=== PATIENT | female | born 1945 | race Caucasian/White ===

== ENCOUNTER 2020-07-15 05:47 | Inpatient (IN) ==
[2020-07-15 06:32] LABS: Basophils # 0.1 K/mcL (0.0-0.2); Basophils % 0.4 %; Eosinophils % 0.3 %; Hematocrit 40.2 % (35.3-44.9); Hemoglobin 12.9 g/dL (11.5-15.4); Immature Granulocytes % 0.9 % (0-4); Lymphocytes # 0.7 K/mcL (0.6-4.6); Lymphocytes % 5.8 %; Mean Corpuscular HGB Conc 32.1 g/dL (31.6-35.5); Mean Corpuscular Hemoglobin 32.3 pg (28.0-33.3); Mean Corpuscular Volume 100.8 fL (83.0-100.0); Mean Platelet Volume 9.2 fL (9.4-12.4); Monocytes # 1.4 K/mcL (0.0-1.3); Monocytes % 11.4 %; Neutrophils # 10.1 K/mcL (1.6-8.9); Platelet Count 158 K/mcL (140-400); Red Blood Count 3.99 M/mcL (3.82-4.97); Red Cell Distribution Width 15.5 % (11.5-14.5); Segmented Neutrophils % 81.2 %; White Blood Count 12.4 K/mcL (4.3-11.1)
[2020-07-15 07:03] LABS: Calcium 9.6 mg/dL (8.6-10.3); Potassium 4.3 mEq/L (3.5-5.1); Troponin I 0.04 ng/mL (< 0.04)
[2020-07-15] MEDS ORDERED: Isovue-370 500 ML BOTTLE IVP ONE (07:03)
[2020-07-15] MEDS ORDERED: Acetaminophen 325 MG TABLET PO ONE (07:31)
[2020-07-15 07:52] LABS: Adenovirus Not Detected (Not Detect); Bordetella Pertussis Not Detected (Not Detect); Chlamydophila pneumoniae Not Detected (Not Detect); Coronavirus 229E Not Detected (Not Detect); Coronavirus HKU1 Not Detected (Not Detect); Coronavirus NL63 Not Detected (Not Detect); Coronavirus OC43 Not Detected (Not Detect); Human Metapneumovirus Not Detected (Not Detect); Human Rhinovirus/Enterovirus Not Detected (Not Detect); Influenza A Subtype 2009 H1 Not Detected (Not Detect); Influenza B Not Detected (Not Detect); Mycoplasma pneumoniae Not Detected (Not Detect); Parainfluenza Virus 1 Not Detected (Not Detect); Parainfluenza Virus 2 Not Detected (Not Detect); Parainfluenza Virus 3 Not Detected (Not Detect); Parainfluenza Virus 4 Not Detected (Not Detect); Respiratory Syncytial Virus Not Detected (Not Detect); SARS-CoV-2 Not Detected (Not Detect)
[2020-07-15 08:34] LABS: Amorphous Sediment,Urine Few per hpf (None-Few); Bilirubin,Urine Negative (Negative); Blood,Urine Negative (Negative); Clarity,Urine Clear (Clear); Color,Urine Yellow (Yellow); Glucose,Urine (UA) Normal (Normal); Granular Casts,Urine Few per lpf (None Seen); Hyaline Casts,Urine Few per lpf (None Seen); Ketones,Urine Negative (Negative); Leukocyte Esterase,Urine Negative (Negative); Mucus,Urine Few per lpf (None-Few); Nitrite,Urine Negative (Negative); PH,Urine 5.5 pH Units (5.0-8.0); Protein,Urine 100 mg/dL (Neg-Trace); RBC,Urine 0-3 per hpf (0-3); Specific Gravity,Urine 1.019 (1.010-1.025); Squamous Epithelial Cell,Urine Few per hpf (None-Few); Urobilinogen,Urine Normal (Normal); WBC,Urine 0-3 per hpf (0-3)
[2020-07-15] MEDS ORDERED: cefTRIAXone 1,000 MG in Water for inj. (sterile) 10 ML IVP ONE (09:04)
[2020-07-15] MEDS ORDERED: Azithromycin 500 MG in 0.9 % Sodium Chloride 250 ML IVPB ONE (09:05)
[2020-07-15] MEDS ORDERED: Naloxone 0.4 MG/ML INJ IVP PRN (10:03)
[2020-07-15] MEDS ORDERED: Ondansetron 4 MG/2 ML VIAL IVP PRN (10:03)
[2020-07-15] MEDS ORDERED: *HR* Dextrose 50 % in Water (Vial) 50 ML VIAL IVP PRN (10:36)
[2020-07-15] MEDS ORDERED: Dextrose Gel 15 GM/37.5 ML TUBE PO PRN ×2 (10:36)
[2020-07-15] MEDS ORDERED: D5% in Water 1,000 ML IVC PRN (10:36)
[2020-07-15] MEDS: Insulin LISPRO 300 UNITS/3 ML VIAL SUBQ SCH ×2 (11:14→17:19)
[2020-07-15] MEDS: *HR* Heparin 5,000 UNIT/ML VIAL SQ SCH (17:18)
[2020-07-15] MEDS: Acetaminophen 325 MG TABLET PO PRN (17:19)
[2020-07-15] MEDS: Gabapentin 300 MG CAPSULE PO SCH (19:54)
[2020-07-15] MEDS: amLODIPine 5 MG TABLET PO SCH (19:54)
[2020-07-15] MEDS: traZODone 50 MG TABLET PO SCH (19:55)
[2020-07-15] MEDS: hydrALAZINE 25 MG TABLET PO SCH (19:55)
[2020-07-15] MEDS ORDERED: Venlafaxine XR (24 HR) 150 MG CAP.ER.24H PO SCH (21:00)
[2020-07-16 06:10] LABS: Basophils % 0.3 %; Eosinophils % 0.1 %; Hematocrit 36.9 % (35.3-44.9); Hemoglobin 11.8 g/dL (11.5-15.4); Immature Granulocytes % 0.6 % (0-4); Lymphocytes # 0.6 K/mcL (0.6-4.6); Lymphocytes % 4.1 %; Mean Corpuscular Hemoglobin 32.1 pg (28.0-33.3); Mean Corpuscular Volume 100.3 fL (83.0-100.0); Mean Platelet Volume 9.3 fL (9.4-12.4); Monocytes # 1.2 K/mcL (0.0-1.3); Monocytes % 8.7 %; Neutrophils # 11.7 K/mcL (1.6-8.9); Platelet Count 138 K/mcL (140-400); Red Blood Count 3.68 M/mcL (3.82-4.97); Red Cell Distribution Width 15.3 % (11.5-14.5); Segmented Neutrophils % 86.2 %; White Blood Count 13.5 K/mcL (4.3-11.1)
[2020-07-16 06:31] LABS: BUN/Creatinine Ratio 20 (6-26); Blood Urea Nitrogen 19 mg/dL (8-23); Calcium 9.3 mg/dL (8.6-10.3); Carbon Dioxide 25 mEq/L (23-29); Chloride 101 mEq/L (98-107); Glucose 170 mg/dL (70-105); Magnesium 1.8 mg/dL (1.6-2.6); Osmolality,Calculated 284 (280-300); Potassium 3.9 mEq/L (3.5-5.1); Sodium 134 mEq/L (136-145); eGFR For African Americans > 60 (> 60); eGFR For Non-African Americans 58 (> 60)
[2020-07-16] MEDS ORDERED: Perflutren Lipid Microsphere 1.3 ML in 0.9 % Sodium Chloride 8.7 ML IVP PRN (07:44)
[2020-07-16] MEDS: Metoprolol XL (24 HR) Succ 25 MG TAB.ER.24H PO SCH (08:12)
[2020-07-16] MEDS: Aspirin Enteric Coated 81 MG Tablet PO SCH (08:12)
[2020-07-16] MEDS: Famotidine 20 MG TABLET PO SCH (08:12)
[2020-07-16] MEDS: Cyanocobalamin (B-12) 1,000 MCG TABLET PO SCH (08:13)
[2020-07-16] MEDS: hydrALAZINE 25 MG TABLET PO SCH ×3 (08:13→20:03)
[2020-07-16] MEDS: Gabapentin 300 MG CAPSULE PO SCH ×3 (08:13→20:04)
[2020-07-16] MEDS: amLODIPine 5 MG TABLET PO SCH ×2 (08:13→20:04)
[2020-07-16] MEDS: cefTRIAXone 1,000 MG in Water for inj. (sterile) 10 ML IVP SCH (08:13)
[2020-07-16] MEDS: *HR* Heparin 5,000 UNIT/ML VIAL SQ SCH (08:14)
[2020-07-16] MEDS: Insulin LISPRO 300 UNITS/3 ML VIAL SUBQ SCH ×3 (08:17→16:23)
[2020-07-16] MEDS ORDERED: Venlafaxine XR (24 HR) 37.5 MG CAP.ER.24H PO SCH (09:00)
[2020-07-16] MEDS ORDERED: Furosemide 20 MG TABLET PO SCH (09:00)
[2020-07-16] MEDS ORDERED: Furosemide 20 MG/2 ML VIAL IVP SCH (09:00)
[2020-07-16 10:19] LABS: Adenovirus Not Detected (Not Detect); Bordetella Pertussis Not Detected (Not Detect); Chlamydophila pneumoniae Not Detected (Not Detect); Coronavirus 229E Not Detected (Not Detect); Coronavirus HKU1 Not Detected (Not Detect); Coronavirus NL63 Not Detected (Not Detect); Coronavirus OC43 Not Detected (Not Detect); Human Metapneumovirus Not Detected (Not Detect); Human Rhinovirus/Enterovirus Not Detected (Not Detect); Influenza A Subtype 2009 H1 Not Detected (Not Detect); Influenza B Not Detected (Not Detect); Mycoplasma pneumoniae Not Detected (Not Detect); Parainfluenza Virus 1 Not Detected (Not Detect); Parainfluenza Virus 2 Not Detected (Not Detect); Parainfluenza Virus 3 Not Detected (Not Detect); Parainfluenza Virus 4 Not Detected (Not Detect); Respiratory Syncytial Virus Not Detected (Not Detect); SARS-CoV-2 Not Detected (Not Detect)
[2020-07-16] MEDS: Azithromycin 500 MG in 0.9 % Sodium Chloride 250 ML IVPB SCH (11:00)
[2020-07-16] MEDS ORDERED: *HR* Heparin 5,000 UNIT/ML VIAL IVP ONE (15:31)
[2020-07-16] MEDS: Acetaminophen 325 MG TABLET PO PRN ×2 (15:34→21:34)
[2020-07-16] MEDS: lisinopriL 20 MG TABLET PO SCH (16:27)
[2020-07-16] MEDS: Heparin 25,000UNIT/250ML 1/2NS 25,000 UNIT/250 ML IV.SOLN IVC SCH (16:28)
[2020-07-16] MEDS ORDERED: *HR* Heparin 5,000 UNIT/ML VIAL IVP PRN ×2 (16:30)
[2020-07-16 17:00] LABS: Hematocrit 35.8 % (35.3-44.9); Hemoglobin 11.4 g/dL (11.5-15.4); Mean Corpuscular HGB Conc 31.8 g/dL (31.6-35.5); Mean Corpuscular Hemoglobin 31.4 pg (28.0-33.3); Mean Corpuscular Volume 98.6 fL (83.0-100.0); Mean Platelet Volume 9.5 fL (9.4-12.4); Platelet Count 142 K/mcL (140-400); Red Blood Count 3.63 M/mcL (3.82-4.97); Red Cell Distribution Width 15.3 % (11.5-14.5); White Blood Count 9.9 K/mcL (4.3-11.1)
[2020-07-16 17:02] LABS: INR 1.3; Prothrombin Time 14.4 Seconds (9.4-12.1)
[2020-07-16 17:03] LABS: Heparin anti-factor XA UFH < 0.04 IU/mL (0.30-0.70)
[2020-07-16] MEDS: Furosemide 20 MG/2 ML VIAL IVP SCH (20:03)
[2020-07-16] MEDS: traZODone 50 MG TABLET PO SCH (20:04)
[2020-07-16] MEDS ORDERED: Melatonin 3 MG TABLET PO ONE (20:17)
[2020-07-16] MEDS: Venlafaxine XR (24 HR) 150 MG CAP.ER.24H PO SCH (21:35)
[2020-07-17] MEDS: Acetaminophen 325 MG TABLET PO PRN (01:22)
[2020-07-17 06:21] LABS: Basophils # 0.1 K/mcL (0.0-0.2); Basophils % 0.5 %; Eosinophils # 0.1 K/mcL (0.0-0.6); Eosinophils % 0.8 %; Hematocrit 35.3 % (35.3-44.9); Hemoglobin 11.3 g/dL (11.5-15.4); Immature Granulocytes % 0.7 % (0-4); Lymphocytes # 0.8 K/mcL (0.6-4.6); Lymphocytes % 7.9 %; Mean Corpuscular Hemoglobin 31.8 pg (28.0-33.3); Mean Corpuscular Volume 99.4 fL (83.0-100.0); Mean Platelet Volume 9.6 fL (9.4-12.4); Monocytes # 0.9 K/mcL (0.0-1.3); Monocytes % 8.7 %; Neutrophils # 7.9 K/mcL (1.6-8.9); Platelet Count 159 K/mcL (140-400); Red Blood Count 3.55 M/mcL (3.82-4.97); Red Cell Distribution Width 15.2 % (11.5-14.5); Segmented Neutrophils % 81.4 %; White Blood Count 9.7 K/mcL (4.3-11.1)
[2020-07-17 06:54] LABS: Calcium 9.7 mg/dL (8.6-10.3); Potassium 3.9 mEq/L (3.5-5.1)
[2020-07-17] MEDS: Insulin LISPRO 300 UNITS/3 ML VIAL SUBQ SCH ×3 (07:26→16:36)
[2020-07-17] MEDS ORDERED: lisinopriL 20 MG TABLET PO SCH (09:00)
[2020-07-17] MEDS: cefTRIAXone 1,000 MG in Water for inj. (sterile) 10 ML IVP SCH (10:12)
[2020-07-17] MEDS: Famotidine 20 MG TABLET PO SCH (10:13)
[2020-07-17] MEDS: Aspirin Enteric Coated 81 MG Tablet PO SCH (10:13)
[2020-07-17] MEDS: hydrALAZINE 25 MG TABLET PO SCH ×3 (10:14→19:55)
[2020-07-17] MEDS: Metoprolol XL (24 HR) Succ 25 MG TAB.ER.24H PO SCH (10:14)
[2020-07-17] MEDS: Venlafaxine XR (24 HR) 37.5 MG CAP.ER.24H PO SCH (10:15)
[2020-07-17] MEDS: Cyanocobalamin (B-12) 1,000 MCG TABLET PO SCH (10:15)
[2020-07-17] MEDS: amLODIPine 5 MG TABLET PO SCH ×2 (10:15→19:54)
[2020-07-17] MEDS: lisinopriL 20 MG TABLET PO SCH (10:15)
[2020-07-17] MEDS: Furosemide 20 MG/2 ML VIAL IVP SCH ×2 (10:16→19:54)
[2020-07-17] MEDS: Gabapentin 300 MG CAPSULE PO SCH ×3 (10:16→19:54)
[2020-07-17] MEDS: Heparin 25,000UNIT/250ML 1/2NS 25,000 UNIT/250 ML IV.SOLN IVC SCH ×2 (10:16→23:29)
[2020-07-17] MEDS: Azithromycin 500 MG in 0.9 % Sodium Chloride 250 ML IVPB SCH (10:29)
[2020-07-17] MEDS ORDERED: Furosemide 20 MG/2 ML VIAL IVP ONE (14:08)
[2020-07-17] MEDS: traZODone 50 MG TABLET PO SCH (19:54)
[2020-07-17] MEDS: Venlafaxine XR (24 HR) 150 MG CAP.ER.24H PO SCH (19:54)
[2020-07-18] MEDS: Acetaminophen 325 MG TABLET PO PRN (00:13)
[2020-07-18 03:24] LABS: Basophils % 0.3 %; Eosinophils # 0.3 K/mcL (0.0-0.6); Eosinophils % 3.4 %; Hemoglobin 11.3 g/dL (11.5-15.4); Immature Granulocytes % 0.6 % (0-4); Lymphocytes % 11.3 %; Mean Corpuscular HGB Conc 32.3 g/dL (31.6-35.5); Mean Corpuscular Hemoglobin 32.2 pg (28.0-33.3); Mean Corpuscular Volume 99.7 fL (83.0-100.0); Mean Platelet Volume 9.2 fL (9.4-12.4); Monocytes # 0.9 K/mcL (0.0-1.3); Monocytes % 10.3 %; Neutrophils # 6.5 K/mcL (1.6-8.9); Platelet Count 165 K/mcL (140-400); Red Blood Count 3.51 M/mcL (3.82-4.97); Red Cell Distribution Width 15.2 % (11.5-14.5); Segmented Neutrophils % 74.1 %; White Blood Count 8.7 K/mcL (4.3-11.1)
[2020-07-18 03:40] LABS: Calcium 9.2 mg/dL (8.6-10.3); Potassium 3.5 mEq/L (3.5-5.1)
[2020-07-18] MEDS: Insulin LISPRO 300 UNITS/3 ML VIAL SUBQ SCH ×3 (08:04→17:48)
[2020-07-18] MEDS: cefTRIAXone 1,000 MG in Water for inj. (sterile) 10 ML IVP SCH (09:14)
[2020-07-18] MEDS: Furosemide 20 MG/2 ML VIAL IVP SCH ×2 (09:14→20:59)
[2020-07-18] MEDS: Azithromycin 500 MG in 0.9 % Sodium Chloride 250 ML IVPB SCH (09:15)
[2020-07-18] MEDS: Gabapentin 300 MG CAPSULE PO SCH ×3 (09:16→20:59)
[2020-07-18] MEDS: amLODIPine 5 MG TABLET PO SCH ×2 (09:16→20:58)
[2020-07-18] MEDS: Famotidine 20 MG TABLET PO SCH (09:16)
[2020-07-18] MEDS: Venlafaxine XR (24 HR) 37.5 MG CAP.ER.24H PO SCH (09:16)
[2020-07-18] MEDS: Aspirin Enteric Coated 81 MG Tablet PO SCH (09:16)
[2020-07-18] MEDS: hydrALAZINE 25 MG TABLET PO SCH ×3 (09:17→20:57)
[2020-07-18] MEDS: Cyanocobalamin (B-12) 1,000 MCG TABLET PO SCH (09:17)
[2020-07-18] MEDS: Metoprolol XL (24 HR) Succ 25 MG TAB.ER.24H PO SCH (09:17)
[2020-07-18] MEDS: lisinopriL 20 MG TABLET PO SCH (09:17)
[2020-07-18] MEDS ORDERED: Ipratropium/Albuterol Neb 3 ML IH PRN (10:34)
[2020-07-18] MEDS: predniSONE 20 MG TABLET PO SCH (11:18)
[2020-07-18] MEDS: Ipratropium/Albuterol Neb 3 ML IH SCH ×2 (15:49→21:17)
[2020-07-18] MEDS: *HR* Heparin 5,000 UNIT/ML VIAL SQ SCH (17:48)
[2020-07-18] MEDS: traZODone 50 MG TABLET PO SCH (20:58)
[2020-07-18] MEDS: Venlafaxine XR (24 HR) 150 MG CAP.ER.24H PO SCH (20:58)
[2020-07-19] MEDS: Ipratropium/Albuterol Neb 3 ML IH SCH ×2 (03:28→10:28)
[2020-07-19 05:22] LABS: Basophils % 0.2 %; Eosinophils % 0.3 %; Hematocrit 35.2 % (35.3-44.9); Hemoglobin 11.2 g/dL (11.5-15.4); Immature Granulocytes % 0.5 % (0-4); Lymphocytes # 0.8 K/mcL (0.6-4.6); Lymphocytes % 8.5 %; Mean Corpuscular HGB Conc 31.8 g/dL (31.6-35.5); Mean Corpuscular Hemoglobin 31.6 pg (28.0-33.3); Mean Corpuscular Volume 99.4 fL (83.0-100.0); Mean Platelet Volume 9.4 fL (9.4-12.4); Monocytes # 0.8 K/mcL (0.0-1.3); Monocytes % 9.2 %; Neutrophils # 7.4 K/mcL (1.6-8.9); Platelet Count 180 K/mcL (140-400); Red Blood Count 3.54 M/mcL (3.82-4.97); Red Cell Distribution Width 14.8 % (11.5-14.5); Segmented Neutrophils % 81.3 %; White Blood Count 9.1 K/mcL (4.3-11.1)
[2020-07-19 05:42] LABS: Calcium 10.1 mg/dL (8.6-10.3)
[2020-07-19] MEDS: *HR* Heparin 5,000 UNIT/ML VIAL SQ SCH (05:53)
[2020-07-19] MEDS: Gabapentin 300 MG CAPSULE PO SCH ×2 (08:31→13:19)
[2020-07-19] MEDS: Cyanocobalamin (B-12) 1,000 MCG TABLET PO SCH (08:31)
[2020-07-19] MEDS: Metoprolol XL (24 HR) Succ 25 MG TAB.ER.24H PO SCH (08:31)
[2020-07-19] MEDS: predniSONE 20 MG TABLET PO SCH (08:31)
[2020-07-19] MEDS: amLODIPine 5 MG TABLET PO SCH (08:31)
[2020-07-19] MEDS: hydrALAZINE 25 MG TABLET PO SCH (08:31)
[2020-07-19] MEDS: Aspirin Enteric Coated 81 MG Tablet PO SCH (08:31)
[2020-07-19] MEDS: lisinopriL 20 MG TABLET PO SCH (08:32)
[2020-07-19] MEDS: Insulin LISPRO 300 UNITS/3 ML VIAL SUBQ SCH ×2 (08:32→13:19)
[2020-07-19] MEDS: Famotidine 20 MG TABLET PO SCH (08:32)
[2020-07-19] MEDS: cefTRIAXone 1,000 MG in Water for inj. (sterile) 10 ML IVP SCH (08:32)
[2020-07-19] MEDS: Venlafaxine XR (24 HR) 37.5 MG CAP.ER.24H PO SCH (08:32)
[2020-07-19] MEDS: Furosemide 20 MG/2 ML VIAL IVP SCH (08:33)
[2020-07-19] MEDS: Acetaminophen 325 MG TABLET PO PRN (08:37)
[2020-07-19 12:32] VITALS: BP 119/57
[2020-07-19] MEDS ORDERED: Azithromycin 250 MG TABLET PO SCH (13:00)
== END 2020-07-19 14:51 | disposition home or self-care (01) | DRG 871 ==
LOC: EMEROOARM 05:47 → CDU 05:47 → SUATTDRO 09:45 → CDU 10:40 → 2NENU 07-16 07:24 → 2ANU 07-16 16:02
PROVIDERS: ADMIT Internal Medicine; ATTEND Internal Medicine

== ENCOUNTER 2022-04-24 09:20 | Inpatient (IN) ==
[2022-04-24] MEDS ORDERED: Pantoprazole 40 MG VIAL IVP ONE (09:35)
[2022-04-24] MEDS ORDERED: 0.9 % Sodium Chloride 1,000 ML IV ONE (09:35)
[2022-04-24] MEDS ORDERED: cefTRIAXone 1,000 MG in 0.9 % Sodium Chloride Mini Bag 100 ML IVPB ONE (09:46)
[2022-04-24 10:02] LABS: Basophils # 0.1 K/mcL (0.0-0.2); Basophils % 0.9 %; Eosinophils # 0.2 K/mcL (0.0-0.6); Eosinophils % 2.3 %; Hematocrit 32.3 % (35.3-44.9); Hemoglobin 10.7 g/dL (11.5-15.4); Immature Granulocytes % 0.5 % (0-4); Lymphocytes # 1.1 K/mcL (0.6-4.6); Lymphocytes % 10.7 %; Mean Corpuscular HGB Conc 33.1 g/dL (31.6-35.5); Mean Corpuscular Hemoglobin 33.9 pg (28.0-33.3); Mean Corpuscular Volume 102.2 fL (83.0-100.0); Mean Platelet Volume 8.8 fL (9.4-12.4); Monocytes # 0.8 K/mcL (0.0-1.3); Monocytes % 8.3 %; Neutrophils # 7.6 K/mcL (1.6-8.9); Platelet Count 310 K/mcL (140-400); Red Blood Count 3.16 M/mcL (3.82-4.97); Red Cell Distribution Width 14.2 % (11.5-14.5); Segmented Neutrophils % 77.3 %; White Blood Count 9.8 K/mcL (4.3-11.1)
[2022-04-24] MEDS: Pantoprazole 40 MG in 0.9 % Sodium Chloride Mini Bag 100 ML IVC SCH ×3 (10:06→19:43)
[2022-04-24 10:08] LABS: INR 1.1; Prothrombin Time 12.4 Seconds (9.4-12.1)
[2022-04-24] MEDS ORDERED: Metoclopramide 10 MG/2 ML VIAL IVP ONE (10:33)
[2022-04-24 11:18] LABS: Albumin/Globulin Ratio 1.4 (1.1-2.2); Bilirubin,Direct 0.1 mg/dL (0.0-0.2); Bilirubin,Indirect 0.3 mg/dL (0.0-1.0); Bilirubin,Total 0.4 mg/dL (0.3-1.0); Calcium 9.3 mg/dL (8.6-10.3); Globulin 2.2 g/dL (2.4-3.5); Potassium 5.2 mEq/L (3.5-5.1); Total Protein 5.2 g/dL (6.4-8.9)
[2022-04-24] MEDS: Octreotide 400 MCG in 0.9 % Sodium Chloride 100 ML IVC SCH ×2 (11:45→19:39)
[2022-04-24] MEDS ORDERED: Lidocaine -MPF 2% 2 ML VIAL ONE (12:05)
[2022-04-24] MEDS ORDERED: methylPREDNISolone 125 MG/2 ML VIAL ONE (12:56)
[2022-04-24] MEDS ORDERED: EPHEDrine sulfate 50 MG/10 ML VIAL IVP ONE (13:00)
[2022-04-24] MEDS ORDERED: *HR* Rocuronium Bromide 50 MG/5 ML VIAL ONE (13:15)
[2022-04-24] MEDS ORDERED: *HR* Succinylcholine 200 MG/10 ML VIAL IVP ONE (13:28)
[2022-04-24] MEDS ORDERED: *HR* Midazolam HCl 2 MG/2 ML VIAL ONE (13:51)
[2022-04-24] MEDS ORDERED: Artificial Tears SOLN 15 ML BOTTLE BOTH EYES PRN (14:10)
[2022-04-24] MEDS: FentaNYL (PF) 1,000 MCG/100 ML IV.SOLN IVC SCH ×2 (14:25→23:12)
[2022-04-24 15:09] LABS: ABG Base Excess 0 mEq/L (-2 to 3); ABG HCO3 26 mEq/L (21-27); ABG Oxygen Saturation 98 % (95-98); ABG PCO2 55 mmHg (35-45); ABG PH 7.29 pH Units (7.32-7.45); ABG PO2 118 mmHg (85-104); ABG TCO2 28 mEq/L (20-26); Blood Gas Modality ASSIST CONTROL; Blood Gas VT 450 cc
[2022-04-24 16:15] LABS: Hematocrit 24.6 % (35.3-44.9); Mean Corpuscular HGB Conc 32.1 g/dL (31.6-35.5); Mean Corpuscular Hemoglobin 33.3 pg (28.0-33.3); Mean Corpuscular Volume 103.8 fL (83.0-100.0); Mean Platelet Volume 8.8 fL (9.4-12.4); Platelet Count 257 K/mcL (140-400); Red Blood Count 2.37 M/mcL (3.82-4.97); Red Cell Distribution Width 14.3 % (11.5-14.5); White Blood Count 12.8 K/mcL (4.3-11.1)
[2022-04-24 16:17] LABS: Hemoglobin 7.9 g/dL (11.5-15.4)
[2022-04-24] MEDS: Piperacillin/Tazobactam 3.375 GM in 0.9 % Sodium Chloride Mini Bag 100 ML IVPB SCH ×2 (16:30→23:17)
[2022-04-24] MEDS: Artificial Tears SOLN 15 ML BOTTLE BOTH EYES SCH ×3 (16:30→23:18)
[2022-04-24] MEDS: Metoclopramide 10 MG/2 ML VIAL IVP SCH ×2 (17:37→23:18)
[2022-04-24] MEDS: Chlorhexidine Rinse 15 ML MOUTHWASH MM SCH (19:41)
[2022-04-24 20:24] LABS: Hemoglobin 7.9 g/dL (11.5-15.4)
[2022-04-24] MEDS ORDERED: Ringers Solution, Lactated 1,000 ML IVC ONE (23:08)
[2022-04-25] MEDS: Pantoprazole 40 MG in 0.9 % Sodium Chloride Mini Bag 100 ML IVC SCH ×4 (00:44→20:35)
[2022-04-25] MEDS: Octreotide 400 MCG in 0.9 % Sodium Chloride 100 ML IVC SCH ×2 (03:35→11:37)
[2022-04-25] MEDS: Artificial Tears SOLN 15 ML BOTTLE BOTH EYES SCH ×5 (03:37→20:36)
[2022-04-25 03:42] LABS: ABG Base Excess -1 mEq/L (-2 to 3); ABG HCO3 25 mEq/L (21-27); ABG Oxygen Saturation 96 % (95-98); ABG PCO2 51 mmHg (35-45); ABG PO2 90 mmHg (85-104); ABG TCO2 27 mEq/L (20-26); Blood Gas VT 450 cc
[2022-04-25] MEDS: Metoclopramide 10 MG/2 ML VIAL IVP SCH ×2 (05:17→11:37)
[2022-04-25 06:01] LABS: Basophils % 0.1 %; Hematocrit 22.1 % (35.3-44.9); Hemoglobin 7.1 g/dL (11.5-15.4); Immature Granulocytes % 0.6 % (0-4); Lymphocytes % 4.7 %; Mean Corpuscular HGB Conc 32.1 g/dL (31.6-35.5); Mean Corpuscular Volume 105.7 fL (83.0-100.0); Mean Platelet Volume 9.4 fL (9.4-12.4); Monocytes # 1.2 K/mcL (0.0-1.3); Neutrophils # 17.9 K/mcL (1.6-8.9); Platelet Count 246 K/mcL (140-400); Red Blood Count 2.09 M/mcL (3.82-4.97); Red Cell Distribution Width 14.5 % (11.5-14.5); Segmented Neutrophils % 88.6 %
[2022-04-25 06:04] LABS: White Blood Count 20.2 K/mcL (4.3-11.1)
[2022-04-25 06:19] LABS: Calcium 8.7 mg/dL (8.6-10.3); Potassium 5.8 mEq/L (3.5-5.1)
[2022-04-25] MEDS ORDERED: Albuterol 2.5 MG/3 ML NEBULIZER IH PRN (07:43)
[2022-04-25] MEDS ORDERED: 0.9 % Sodium Chloride 250 ML ONE ×2 (08:51→15:23)
[2022-04-25] MEDS: FentaNYL (PF) 1,000 MCG/100 ML IV.SOLN IVC SCH ×3 (09:03→20:35)
[2022-04-25] MEDS: Piperacillin/Tazobactam 3.375 GM in 0.9 % Sodium Chloride Mini Bag 100 ML IVPB SCH ×2 (09:05→15:15)
[2022-04-25] MEDS: Chlorhexidine Rinse 15 ML MOUTHWASH MM SCH ×2 (09:05→20:36)
[2022-04-25] MEDS: Insulin LISPRO 300 UNITS/3 ML VIAL SUBQ SCH ×2 (11:38→17:23)
[2022-04-25] MEDS ORDERED: Metoclopramide 10 MG/2 ML VIAL IVP SCH (12:00)
[2022-04-25] MEDS ORDERED: 0.9 % Sodium Chloride 1,000 ML ONE (12:47)
[2022-04-25] MEDS ORDERED: Erythromycin Lactobionate 250 MG in 0.9 % Sodium Chloride 100 ML IVPB ONE (13:26)
[2022-04-25 14:45] LABS: Hematocrit 22.1 % (35.3-44.9); Hemoglobin 7.4 g/dL (11.5-15.4)
[2022-04-25] MEDS: Erythromycin Lactobionate 250 MG in 0.9 % Sodium Chloride 100 ML IVPB SCH (17:11)
[2022-04-25] MEDS: Dexmedetomidine HCl 400 MCG/100 ML MLS IVC SCH (19:50)
[2022-04-26] MEDS: Erythromycin Lactobionate 250 MG in 0.9 % Sodium Chloride 100 ML IVPB SCH ×3 (00:10→19:54)
[2022-04-26] MEDS: Piperacillin/Tazobactam 3.375 GM in 0.9 % Sodium Chloride Mini Bag 100 ML IVPB SCH ×3 (00:10→20:43)
[2022-04-26] MEDS: Artificial Tears SOLN 15 ML BOTTLE BOTH EYES SCH ×7 (00:11→23:22)
[2022-04-26] MEDS: Insulin LISPRO 300 UNITS/3 ML VIAL SUBQ SCH ×5 (00:11→23:25)
[2022-04-26] MEDS ORDERED: Ringers Solution, Lactated 500 ML ONE (00:44)
[2022-04-26] MEDS: Midazolam HCl 50 MG/50 ML IV.SOLN IVC SCH ×2 (02:30→10:03)
[2022-04-26 02:31] LABS: Basophils # 0.1 K/mcL (0.0-0.2); Basophils % 0.4 %; Eosinophils # 0.2 K/mcL (0.0-0.6); Eosinophils % 1.5 %; Hematocrit 21.6 % (35.3-44.9); Hemoglobin 7.1 g/dL (11.5-15.4); Immature Granulocytes % 0.5 % (0-4); Lymphocytes # 1.8 K/mcL (0.6-4.6); Lymphocytes % 15.5 %; Mean Corpuscular HGB Conc 32.9 g/dL (31.6-35.5); Mean Corpuscular Hemoglobin 33.8 pg (28.0-33.3); Mean Corpuscular Volume 102.9 fL (83.0-100.0); Mean Platelet Volume 9.4 fL (9.4-12.4); Monocytes % 8.6 %; Neutrophils # 8.5 K/mcL (1.6-8.9); Platelet Count 192 K/mcL (140-400); Red Cell Distribution Width 17.1 % (11.5-14.5); Segmented Neutrophils % 73.5 %; White Blood Count 11.5 K/mcL (4.3-11.1)
[2022-04-26 03:59] LABS: ABG Base Excess -2 mEq/L (-2 to 3); ABG HCO3 24 mEq/L (21-27); ABG Oxygen Saturation 96 % (95-98); ABG PCO2 49 mmHg (35-45); ABG PH 7.29 pH Units (7.32-7.45); ABG PO2 94 mmHg (85-104); ABG TCO2 25 mEq/L (20-26); Blood Gas Modality AF; Blood Gas VT 450 cc
[2022-04-26] MEDS ORDERED: Pantoprazole 40 MG VIAL IVP ONE (04:38)
[2022-04-26] MEDS: Octreotide 400 MCG in 0.9 % Sodium Chloride 100 ML IVC SCH ×2 (05:46→19:54)
[2022-04-26] MEDS: FentaNYL (PF) 1,000 MCG/100 ML IV.SOLN IVC SCH (06:25)
[2022-04-26] MEDS ORDERED: 0.9 % Sodium Chloride 250 ML ONE (07:32)
[2022-04-26] MEDS ORDERED: Lidocaine -MPF 1% 5 ML AMPUL INFILT ONE (07:56)
[2022-04-26] MEDS: Chlorhexidine Rinse 15 ML MOUTHWASH MM SCH ×2 (10:02→20:44)
[2022-04-26 10:16] LABS: Basophils # 0.1 K/mcL (0.0-0.2); Basophils % 0.5 %; Eosinophils # 0.4 K/mcL (0.0-0.6); Eosinophils % 3.2 %; Hematocrit 22.3 % (35.3-44.9); Hemoglobin 7.3 g/dL (11.5-15.4); Immature Granulocytes % 0.5 % (0-4); Lymphocytes # 1.8 K/mcL (0.6-4.6); Lymphocytes % 15.5 %; Mean Corpuscular HGB Conc 32.7 g/dL (31.6-35.5); Mean Corpuscular Hemoglobin 33.5 pg (28.0-33.3); Mean Corpuscular Volume 102.3 fL (83.0-100.0); Mean Platelet Volume 9.2 fL (9.4-12.4); Monocytes # 1.1 K/mcL (0.0-1.3); Monocytes % 9.5 %; Neutrophils # 8.1 K/mcL (1.6-8.9); Platelet Count 196 K/mcL (140-400); Red Blood Count 2.18 M/mcL (3.82-4.97); Segmented Neutrophils % 70.8 %; White Blood Count 11.4 K/mcL (4.3-11.1)
[2022-04-26 10:32] LABS: Calcium 8.8 mg/dL (8.6-10.3); Potassium 4.7 mEq/L (3.5-5.1)
[2022-04-26] MEDS ORDERED: Ketamine HCL *QUVA* 50mg (1mL) SYRINGE ONE (11:04)
[2022-04-26] MEDS ORDERED: *HR* Rocuronium Bromide 50 MG/5 ML VIAL ONE ×3 (11:05→13:28)
[2022-04-26] MEDS ORDERED: *HR* Propofol 200 MG/20 ML VIAL IVP ONE ×2 (11:33→13:41)
[2022-04-26] MEDS ORDERED: *HR* EPINEPHrine 1 MG/10 ML SYRINGE INTRATRACH PRN (13:34)
[2022-04-26] MEDS ORDERED: Lidocaine -MPF 2% 2 ML VIAL ONE (13:45)
[2022-04-26] MEDS: Pantoprazole 40 MG VIAL IVP SCH ×2 (14:21→23:22)
[2022-04-26] MEDS ORDERED: Haloperidol Lactate 5 MG/ML VIAL IVP ONE (16:53)
[2022-04-26] MEDS: Norepinephrine 4 MG/254 ML IV.SOLN IVC SCH ×2 (19:52→19:53)
[2022-04-26] MEDS: Pantoprazole 40 MG in 0.9 % Sodium Chloride Mini Bag 100 ML IVC SCH ×2 (19:53→19:54)
[2022-04-26] MEDS: Dexmedetomidine HCl 400 MCG/100 ML MLS IVC SCH (19:53)
[2022-04-26] MEDS ORDERED: OLANZapine 10 MG VIAL IM ONE (20:49)
[2022-04-26] MEDS ORDERED: lisinopriL 20 MG TABLET PO SCH (21:00)
[2022-04-26] MEDS ORDERED: Water for inj. (sterile) 10 ML ONE (21:28)
[2022-04-26 22:36] LABS: Hematocrit 25.8 % (35.3-44.9); Hemoglobin 8.4 g/dL (11.5-15.4)
[2022-04-27] MEDS: Dexmedetomidine HCl 400 MCG/100 ML MLS IVC SCH (01:29)
[2022-04-27] MEDS: Norepinephrine 4 MG/254 ML IV.SOLN IVC SCH (01:29)
[2022-04-27] MEDS: Artificial Tears SOLN 15 ML BOTTLE BOTH EYES SCH (01:29)
[2022-04-27] MEDS ORDERED: Ipratropium/Albuterol Neb 3 ML IH PRN ×2 (01:39→07:07)
[2022-04-27] MEDS ORDERED: Haloperidol Lactate 5 MG/ML VIAL ONE (03:24)
[2022-04-27] MEDS ORDERED: Haloperidol Lactate 5 MG/ML VIAL IVP ONE (04:00)
[2022-04-27] MEDS: Piperacillin/Tazobactam 3.375 GM in 0.9 % Sodium Chloride Mini Bag 100 ML IVPB SCH ×3 (05:21→20:35)
[2022-04-27] MEDS: Insulin LISPRO 300 UNITS/3 ML VIAL SUBQ SCH ×3 (05:27→18:20)
[2022-04-27 07:42] LABS: Bilirubin,Total 0.6 mg/dL (0.3-1.0); Calcium 9.2 mg/dL (8.6-10.3); Potassium 4.1 mEq/L (3.5-5.1)
[2022-04-27 07:43] LABS: Albumin 3.3 g/dL (3.5-5.7)
[2022-04-27 07:47] LABS: Basophils # 0.1 K/mcL (0.0-0.2); Basophils % 0.8 %; Eosinophils # 0.4 K/mcL (0.0-0.6); Eosinophils % 4.2 %; Hematocrit 26.6 % (35.3-44.9); Hemoglobin 8.7 g/dL (11.5-15.4); Immature Granulocytes % 0.8 % (0-4); Lymphocytes # 1.8 K/mcL (0.6-4.6); Lymphocytes % 16.7 %; Mean Corpuscular HGB Conc 32.7 g/dL (31.6-35.5); Mean Corpuscular Hemoglobin 32.2 pg (28.0-33.3); Mean Corpuscular Volume 98.5 fL (83.0-100.0); Mean Platelet Volume 9.1 fL (9.4-12.4); Monocytes # 1.3 K/mcL (0.0-1.3); Monocytes % 12.4 %; Neutrophils # 6.9 K/mcL (1.6-8.9); Platelet Count 240 K/mcL (140-400); Red Cell Distribution Width 16.1 % (11.5-14.5); Segmented Neutrophils % 65.1 %; White Blood Count 10.6 K/mcL (4.3-11.1)
[2022-04-27 07:58] LABS: Albumin/Globulin Ratio 1.4 (1.1-2.2); Globulin 2.4 g/dL (2.4-3.5); Total Protein 5.7 g/dL (6.4-8.9)
[2022-04-27] MEDS ORDERED: Metoprolol XL (24 HR) Succ 50 MG TAB.ER.24H PO SCH (09:00)
[2022-04-27] MEDS ORDERED: lisinopriL 20 MG TABLET PO SCH (09:00)
[2022-04-27] MEDS: Chlorhexidine Rinse 15 ML MOUTHWASH MM SCH ×2 (10:26→20:36)
[2022-04-27] MEDS: Acetaminophen IV 1,000 MG/100 ML BAG IVPB SCH ×2 (10:45→18:14)
[2022-04-27] MEDS: *HR* Labetalol 20 MG/4 ML SYRINGE IVP PRN (13:04)
[2022-04-27] MEDS ORDERED: Dexmedetomidine HCl 400 MCG/100 ML MLS IVC SCH (14:15)
[2022-04-27] MEDS ORDERED: HydrOXYzine 100 MG/2 ML VIAL IM ONE (15:00)
[2022-04-27] MEDS ORDERED: *HR* Alteplase (Cathflo) 2 MG VIAL IVP ONE (15:24)
[2022-04-27 15:34] LABS: Bilirubin,Urine Negative (Negative); Blood,Urine Moderate (Negative); Clarity,Urine Clear (Clear); Color,Urine Light-Yellow (Yellow); Glucose,Urine (UA) Normal (Normal); Ketones,Urine Negative (Negative); Leukocyte Esterase,Urine Trace (Negative); Mucus,Urine Few per lpf (None-Few); Nitrite,Urine Negative (Negative); Protein,Urine 30 mg/dL (Neg-Trace); RBC,Urine 30-50 per hpf (0-3); Specific Gravity,Urine 1.018 (1.010-1.025); Squamous Epithelial Cell,Urine Few per hpf (None-Few); Urobilinogen,Urine Normal (Normal)
[2022-04-27] MEDS ORDERED: E-Z-HD (BARIUM SULF) SUSPENSION PO ONE (15:59)
[2022-04-27] MEDS ORDERED: E-Z-PAQUE (BARIUM SULF) SUSP 1 BOTTLE PO ONE (15:59)
[2022-04-27] MEDS: polyethylene glycoL 3350 17 GM POWD.PACK PO SCH (16:29)
[2022-04-27] MEDS: traZODone 50 MG TABLET PO SCH (20:36)
[2022-04-28] MEDS: Insulin LISPRO 300 UNITS/3 ML VIAL SUBQ SCH ×4 (00:54→18:57)
[2022-04-28] MEDS: Acetaminophen IV 1,000 MG/100 ML BAG IVPB SCH ×3 (01:43→19:55)
[2022-04-28 02:51] LABS: Basophils # 0.1 K/mcL (0.0-0.2); Basophils % 0.6 %; Eosinophils # 0.4 K/mcL (0.0-0.6); Eosinophils % 4.1 %; Hematocrit 25.7 % (35.3-44.9); Hemoglobin 8.5 g/dL (11.5-15.4); Immature Granulocytes % 0.8 % (0-4); Mean Corpuscular HGB Conc 33.1 g/dL (31.6-35.5); Mean Corpuscular Hemoglobin 32.7 pg (28.0-33.3); Mean Corpuscular Volume 98.8 fL (83.0-100.0); Mean Platelet Volume 8.7 fL (9.4-12.4); Monocytes % 10.7 %; Neutrophils # 6.7 K/mcL (1.6-8.9); Platelet Count 223 K/mcL (140-400); Red Cell Distribution Width 15.9 % (11.5-14.5); Segmented Neutrophils % 72.8 %; White Blood Count 9.3 K/mcL (4.3-11.1)
[2022-04-28 03:07] LABS: Calcium 9.9 mg/dL (8.6-10.3); Magnesium 1.9 mg/dL (1.6-2.6); Potassium 3.8 mEq/L (3.5-5.1)
[2022-04-28 03:27] LABS: Folate 11.4 ng/mL (3.0-16.0)
[2022-04-28] MEDS: Piperacillin/Tazobactam 3.375 GM in 0.9 % Sodium Chloride Mini Bag 100 ML IVPB SCH ×3 (03:38→20:22)
[2022-04-28 03:39] LABS: Vitamin B12 > 1500 pg/mL (250-1100)
[2022-04-28] MEDS: *HR* Labetalol 20 MG/4 ML SYRINGE IVP PRN ×4 (04:49→21:50)
[2022-04-28] MEDS ORDERED: Iron Sucrose Complex 250 MG in 0.9 % Sodium Chloride 250 ML IVPB ONE (09:00)
[2022-04-28] MEDS: Chlorhexidine Rinse 15 ML MOUTHWASH MM SCH ×2 (09:28→20:21)
[2022-04-28] MEDS: polyethylene glycoL 3350 17 GM POWD.PACK PO SCH (09:46)
[2022-04-28] MEDS ORDERED: HydrOXYzine 100 MG/2 ML VIAL IM ONE (09:50)
[2022-04-28 13:40] LABS: Adenovirus F 40/41 PCR Not detected (Not detect); Astrovirus PCR Not detected (Not detect); C.difficile Toxin A/B Gene PCR Not detected (Not detect); Campylobacter by PCR Not detected (Not detect); Cryptosporidium by PCR Not detected (Not detect); Cyclospora cayetanensis PCR Not detected (Not detect); Entamoeba histolytica PCR Not detected (Not detect); Enteroaggregative E.coli(EAEC) Not detected (Not detect); Enteropathogenic E.coli(EPEC) Not detected (Not detect); Enterotoxigenic E.coli (ETEC) Not detected (Not detect); Giardia lamblia PCR Not detected (Not detect); Norovirus GI/GII PCR DETECTED (Not detect); Plesiomonas shigelloides PCR Not detected (Not detect); Rotavirus A PCR Not detected (Not detect); Salmonella PCR Not detected (Not detect); Sapovirus PCR Not detected (Not detect); Shig/EnteroinvasiveE coli EIEC Not detected (Not detect); Shigalike tox-prod E coli STEC Not detected (Not detect); Vibrio PCR Not detected (Not detect); Vibrio cholerae PCR Not detected (Not detect); Yersinia enterocolitica PCR Not detected (Not detect)
[2022-04-28] MEDS: Ringers Solution, Lactated 1,000 ML IVC SCH (17:46)
[2022-04-28] MEDS: traZODone 50 MG TABLET PO SCH (20:21)
[2022-04-28] MEDS: Benzonatate 100 MG CAPSULE PO PRN (23:36)
[2022-04-29] MEDS: Insulin LISPRO 300 UNITS/3 ML VIAL SUBQ SCH ×4 (00:40→18:08)
[2022-04-29 03:03] LABS: Basophils # 0.1 K/mcL (0.0-0.2); Basophils % 1.2 %; Eosinophils # 0.5 K/mcL (0.0-0.6); Hematocrit 24.6 % (35.3-44.9); Hemoglobin 7.9 g/dL (11.5-15.4); Immature Granulocytes % 1.2 % (0-4); Lymphocytes # 1.2 K/mcL (0.6-4.6); Lymphocytes % 18.4 %; Mean Corpuscular HGB Conc 32.1 g/dL (31.6-35.5); Mean Corpuscular Hemoglobin 32.2 pg (28.0-33.3); Mean Corpuscular Volume 100.4 fL (83.0-100.0); Mean Platelet Volume 8.8 fL (9.4-12.4); Monocytes # 0.9 K/mcL (0.0-1.3); Monocytes % 13.9 %; Neutrophils # 3.7 K/mcL (1.6-8.9); Platelet Count 210 K/mcL (140-400); Red Blood Count 2.45 M/mcL (3.82-4.97); Red Cell Distribution Width 15.6 % (11.5-14.5); Segmented Neutrophils % 58.3 %; White Blood Count 6.4 K/mcL (4.3-11.1)
[2022-04-29 03:25] LABS: Calcium 9.3 mg/dL (8.6-10.3); Magnesium 1.6 mg/dL (1.6-2.6); Potassium 3.7 mEq/L (3.5-5.1)
[2022-04-29] MEDS: Acetaminophen IV 1,000 MG/100 ML BAG IVPB SCH (03:39)
[2022-04-29] MEDS: Piperacillin/Tazobactam 3.375 GM in 0.9 % Sodium Chloride Mini Bag 100 ML IVPB SCH ×3 (03:40→20:18)
[2022-04-29] MEDS: Benzonatate 100 MG CAPSULE PO PRN ×4 (04:02→21:48)
[2022-04-29] MEDS: *HR* Labetalol 20 MG/4 ML SYRINGE IVP PRN (04:21)
[2022-04-29] MEDS: Ringers Solution, Lactated 1,000 ML IVC SCH (07:12)
[2022-04-29] MEDS: polyethylene glycoL 3350 17 GM POWD.PACK PO SCH (07:23)
[2022-04-29] MEDS: Chlorhexidine Rinse 15 ML MOUTHWASH MM SCH ×2 (09:42→20:19)
[2022-04-29] MEDS: *HR* Metoprolol 5 MG/5 ML VIAL IVP SCH ×3 (09:42→20:19)
[2022-04-29 18:42] LABS: Amphetamine Screen,Urine Negative ng/mL (Cutoff=1000); Barbiturate Screen,Urine Negative ng/mL (Cutoff=200); Benzodiazepines Screen,Urine Positive ng/mL (Cutoff=200); Cannabinoid Screen,Urine Negative ng/mL (Cutoff = 50); Cocaine Screen,Urine Negative ng/mL (Cutoff= 300); Opiate Screen,Urine Negative ng/mL (Cutoff=300); Phencyclidine Screen,Urine Negative ng/mL (Cutoff=25)
[2022-04-29] MEDS: traZODone 50 MG TABLET PO SCH (20:19)
[2022-04-30] MEDS: Insulin LISPRO 300 UNITS/3 ML VIAL SUBQ SCH ×3 (00:46→15:25)
[2022-04-30] MEDS: *HR* Metoprolol 5 MG/5 ML VIAL IVP SCH ×3 (03:26→15:23)
[2022-04-30] MEDS: Piperacillin/Tazobactam 3.375 GM in 0.9 % Sodium Chloride Mini Bag 100 ML IVPB SCH ×2 (03:35→15:25)
[2022-04-30] MEDS: Chlorhexidine Rinse 15 ML MOUTHWASH MM SCH (09:45)
[2022-04-30] MEDS: Benzonatate 100 MG CAPSULE PO PRN (09:45)
[2022-04-30 09:48] VITALS: O2SAT 96
[2022-04-30] MEDS: polyethylene glycoL 3350 17 GM POWD.PACK PO SCH (10:27)
[2022-04-30 11:40] LABS: Basophils # 0.1 K/mcL (0.0-0.2); Eosinophils # 0.3 K/mcL (0.0-0.6); Eosinophils % 4.3 %; Hematocrit 27.5 % (35.3-44.9); Hemoglobin 8.9 g/dL (11.5-15.4); Immature Granulocytes % 1.3 % (0-4); Lymphocytes # 0.9 K/mcL (0.6-4.6); Lymphocytes % 14.5 %; Mean Corpuscular HGB Conc 32.4 g/dL (31.6-35.5); Mean Corpuscular Hemoglobin 32.6 pg (28.0-33.3); Mean Corpuscular Volume 100.7 fL (83.0-100.0); Mean Platelet Volume 8.6 fL (9.4-12.4); Monocytes # 0.7 K/mcL (0.0-1.3); Monocytes % 11.2 %; Neutrophils # 4.2 K/mcL (1.6-8.9); Platelet Count 239 K/mcL (140-400); Red Blood Count 2.73 M/mcL (3.82-4.97); Red Cell Distribution Width 15.4 % (11.5-14.5); Segmented Neutrophils % 67.7 %; White Blood Count 6.3 K/mcL (4.3-11.1)
[2022-04-30 11:54] VITALS: BP 154/67; PULSE 70; TEMP 98.4
[2022-04-30 11:58] LABS: Calcium 10.1 mg/dL (8.6-10.3); Magnesium 1.9 mg/dL (1.6-2.6); Potassium 3.9 mEq/L (3.5-5.1)
== END 2022-04-30 16:20 | disposition home health service (06) | DRG 853 ==
LOC: EMEROOARM 09:20 → ICNU 12:20 → SUATTDRO 13:37 → ICNU 13:37 → 3NENU 04-27 08:26
PROVIDERS: ADMIT Family Medicine; ATTEND Internal Medicine